=== PATIENT | female | born 1995 | race Caucasian/White ===

== ENCOUNTER 2016-06-02 21:48 | Emergency (ER) | payer OTHER ==
[~2016-06-02] VITALS: Ht 172.7 cm; Wt 61.4 kg
[2016-06-02 21:50] VITALS: TEMP 98.2
[2016-06-02 22:45] LABS: BASO % 0.2 % (0.0-2.0); EOS # 0.3 (0.0-0.7); EOS % 3.1 % (0-4.0); GRAN # 5.4 (1.4-6.5); GRAN % 61.9 % (42.2-75.2); HEMOGLOBIN 13.4 g/dl (12.0-15.0); LYMPH # 2.6 (1.2-3.4); MEAN CELL VOLUME 87 fl (80.0-95.0); MEAN CORPUSCULAR HEMOGLOBIN 29 pg (26.0-32.0); MEAN CORPUSCULAR HGB CONC 33 g/dl (33.0-37.0); MEAN PLATELET VOLUME 10.9 fl (7.4-10.4); MONO # 0.5 (0.1-0.6); MONO % 5.6 % (1.7-9.3); PLATELET COUNT 258 K/mm3 (130-400); RED BLOOD COUNT 4.69 M/mm3 (4.10-5.30); REDCELL DISTRIBUTION WIDTH-CV 12.5 % (11.5-14.5); WHITE BLOOD COUNT 8.8 K/mm3 (4.8-10.8)
[2016-06-02 22:56] LABS: ANION GAP 9 mmol/L (7-16); BLOOD UREA NITROGEN 12 mg/dL (7-17); CALCIUM 9.1 mg/dL (8.4-10.2); CARBON DIOXIDE 27 mmol/L (22-30); CHLORIDE 102 mmol/L (98-107); CREATININE, serum 0.79 mg/dL (0.52-1.25); GLUCOSE 110 mg/dL (74-106); POTASSIUM 3.4 mmol/L (3.4-5.0); SODIUM 138 mmol/L (137-145)
[2016-06-02 22:57] LABS: C-REACTIVE PROTEIN < 0.5 mg/dL (0.0-0.9)
[2016-06-02] MEDS ORDERED: PREDNISONE20 MG PO (23:09)
[2016-06-02] MEDS ORDERED: BENADRYL25 M2 PO (23:09)
[2016-06-02] MEDS ORDERED: PEPCID 20MG TAB20 MG PO (23:09)
[2016-06-03 00:16] VITALS: BP 98/49; PULSE 90
== END 2016-06-03 00:17 | disposition home or self-care (01) ==
LOC: COL.ER 21:48
PROVIDERS: Emergency Medicine
DX: L50.0 Allergic urticaria (principal)
CPT/HCPCS: J0171; J1200; J2930; J7512